=== PATIENT | female | born 1940 | race Caucasian/White ===

== ENCOUNTER → 2017-06-22 | Outpatient (CLI) | payer MEDICARE ==
[2017-06-22 16:02] LABS: BLOOD UREA NITROGEN 11 mg/dL (7-18)
[2017-06-22 16:05] LABS: ASPARTATE AMINO TRANSFERASE 30 U/L (15-37)
== END | disposition home or self-care (01) ==
LOC: STAR 14:41
PROVIDERS: ATTEND Internal Medicine
DX: Z01.818 Encounter for other preprocedural examination (principal); R19.7 Diarrhea, unspecified; R11.0 Nausea; R14.0 Abdominal distension (gaseous)
CPT/HCPCS: 36415; 80053; 93005

== ENCOUNTER 2017-06-28 11:49 | Day surgery (SDC) | payer MEDICARE ==
[~2017-06-28] VITALS: Ht 156.2 cm; Wt 64.1 kg
[~2017-06-28 11:49] MED LIST: ASPI-496 PO; ATOR20TA9 PO; BIMA2.5D EACHEYE; CA C1TAB63 PO; CHOL2000 PO; ESTR0.5T PO; FISH1CAP PO; GABA-827 PO; GLUC1TAB27 PO; LISI5TAB7 PO; MEDR2.5T PO; POTA5TAB2 PO; SERT25TA3 PO; TIMO5DRO8 EACHEYE; VITA1CAP PO; ZINC1POW PO; [UNRECOGNIZED DRUG - OTHER]
[2017-06-28 12:11] LABS: FECAL DELIVERY METHOD COLONOSCOPY
[2017-06-28] MEDS ORDERED: LIDOCAINE 1%, 2ML ONE (12:24)
[2017-06-28] MEDS ORDERED: LACTATED RINGERS 1,000 ML IV SCH (12:42)
[2017-06-28] MEDS ORDERED: LIDOCAINE 1%, 2ML SQ PRN (13:00)
[2017-06-28] MEDS ORDERED: GLUCAGON 1 MG ONE (14:31)
[2017-06-28] MEDS ORDERED: MIDAZOLAM 1 MG/ML, 2ML ONE (14:52)
[2017-06-28] MEDS ORDERED: PROPOFOL 10 MG/ML, 20ML ONE (14:52)
[2017-06-28] MEDS ORDERED: HYDROcodone/APAP 7.5-325MG/15ML UDC PO PRN (15:00)
[2017-06-28] MEDS ORDERED: ONDANSETRON 2MG/ML, 2ML IVPush PRN (15:00)
[2017-06-28] MEDS ORDERED: ALBUTEROL SULFATE 2.5 MG/3 ML NPPB PRN (15:00)
[2017-06-28] MEDS ORDERED: PROMETHAZINE 25 MG/ML, 1ML IV PRN (15:00)
[2017-06-28] MEDS ORDERED: ACETAMINOPHEN 325 MG TABLET PO PRN (15:00)
[2017-06-28] MEDS ORDERED: METOCLOPRAMIDE 5 MG/ML, 2ML IV PRN (15:00)
[2017-06-28] MEDS ORDERED: METOPROLOL 1 MG/ML, 5ML IV PRN (15:00)
[2017-06-28] MEDS ORDERED: LABETALOL 5MG/ML, 20ML IV PRN (15:00)
[2017-06-28] MEDS ORDERED: EPHEDRINE 50 MG/ML, 1ML IVPush PRN (15:00)
[2017-06-28] MEDS ORDERED: HYDROmorphone 1 MG/ML, 1ML IV PRN (15:00)
[2017-06-28] MEDS ORDERED: OXYcodone 5 MG/5 ML ORAL.SOL UDC PO PRN (15:00)
[2017-06-28] MEDS ORDERED: FENTANYL PF 100 MCG/2ML IV PRN (15:00)
[2017-06-28] MEDS ORDERED: hydrALAzine 20 MG/ML, 1ML IV PRN (15:00)
== END 2017-06-28 17:15 ==
LOC: OUT 11:49
PROVIDERS: ATTEND Internal Medicine
DX: A04.71 Enterocolitis due to Clostridium difficile, recurrent (principal); I10 Essential (primary) hypertension; Z86.73 Personal history of transient ischemic attack (TIA), and cerebral infarction without residual deficits
CPT/HCPCS: 44705; G0455; J1610; J2250; J2704; J3490; J7120